=== PATIENT | male | born 1945 | race Two or more races ===

== ENCOUNTER 2022-06-06 04:29 | Emergency (ER) | payer OTHER ==
[~2022-06-06] VITALS: Ht 170.2 cm; Wt 60.8 kg
[2022-06-06] MEDS ORDERED: NORVASC5 MG (04:55)
[2022-06-06] MEDS ORDERED: COLCRYS0.6 MG (04:56)
[2022-06-06] MEDS ORDERED: ECOTRIN81 MG (04:56)
[2022-06-06] MEDS ORDERED: MELOXICAM15 MG PO (07:33)
== END 2022-06-06 07:53 | disposition home or self-care (01) ==
LOC: ER 04:29
DX: M10.9 Gout, unspecified (principal); I10 Essential (primary) hypertension; E11.9 Type 2 diabetes mellitus without complications; M19.90 Unspecified osteoarthritis, unspecified site